=== PATIENT | female | born 1980 | race Caucasian/White ===

== ENCOUNTER 2018-05-07 05:44 | Emergency (ER) | payer BC ==
[2018-05-07 05:52] VITALS: RESP 16
--- NOTE | 2018-05-07 06:24 | ED ---
General Adult HPI - General Source: patient, RN notes reviewed Mode of arrival: ambulatory Limitations: no limitations <Leonard López - Last Filed: 05/07/18 06:22> <John Jeffery - Last Filed: 05/07/18 07:31> - General Chief complaint: Anxiety Stated complaint: Anxiety Time Seen by Provider: 05/07/18 05:54 - History of Present Illness Initial comments: 38-year-old female presenting with multiple complaints. Her chief complaint is anxiety and panic attack. She does have history of anxiety disorder and is currently on clonazepam twice daily. She has an appointment with her psychiatrist later today. Patient is concerned that she has some intracranial disease process. She's had sinus infection, pain between her eyes and worsening headache for the past 6 months. The symptoms have significantly worsened over the past one month. Her primary care physician is aware of these symptoms. Patient is unable to function secondary to her anxiety. Although her anxiety is quite severe she has truly concerned about her nasal congestion, headache, and vision changes. (Leonard López) - Related Data Home Medications Medication Instructions Recorded Confirmed FLUoxetine HCL [PROzac] 20 mg PO HS 05/07/18 05/07/18 Omeprazole 20 mg PO HS 05/07/18 05/07/18 clonazePAM [KlonoPIN] 0.25 mg PO BID 05/07/18 05/07/18 Allergies Allergy/AdvReac Type Severity Reaction Status Date / Time No Known Allergies Allergy Verified 05/07/18 07:20 Review of Systems ROS Other: All systems not noted in ROS Statement are negative. <Leonard López - Last Filed: 05/07/18 06:22> ROS Other: All systems not noted in ROS Statement are negative. <John Jeffery - Last Filed: 05/07/18 07:31> ROS Statement: Those systems with pertinent positive or pertinent negative responses have been documented in the HPI. Past Medical History Past Medical History: No Reported History History of Any Multi-Drug Resistant Organisms: None Reported Past Surgical History: Section Past Psychological History: Anxiety Smoking Status: Never smoker Past Alcohol Use History: None Reported Past Drug Use History: None Reported <Leonard López - Last Filed: 05/07/18 06:22> General Exam Limitations: no limitations General appearance: alert, in no apparent distress Head exam: Present: atraumatic, normocephalic Eye exam: Present: normal appearance, PERRL, EOMI ENT exam: Present: normal exam Neck exam: Present: normal inspection. Absent: tenderness, meningismus Respiratory exam: Present: normal lung sounds bilaterally. Absent: respiratory distress, wheezes Cardiovascular Exam: Present: regular rate, normal rhythm GI/Abdominal exam: Present: soft. Absent: distended, tenderness Extremities exam: Present: normal inspection, full ROM Back exam: Present: normal inspection, full ROM Neurological exam: Present: alert, oriented X3 Psychiatric exam: Present: anxious Skin exam: Present: warm, dry, intact. Absent: cyanosis, diaphoretic <Leonard López - Last Filed: 05/07/18 06:22> General appearance: alert, in no apparent distress Head exam: Present: atraumatic, normocephalic, normal inspection Eye exam: Present: normal appearance, PERRL, EOMI. Absent: scleral icterus, conjunctival injection, periorbital swelling ENT exam: Present: normal exam, mucous membranes moist Neck exam: Present: normal inspection. Absent: tenderness, meningismus, lymphadenopathy Respiratory exam: Present: normal lung sounds bilaterally. Absent: respiratory distress, wheezes, rales, rhonchi, stridor Cardiovascular Exam: Present: regular rate, normal rhythm, normal heart sounds. Absent: systolic murmur, diastolic murmur, rubs, gallop, clicks GI/Abdominal exam: Present: soft, normal bowel sounds. Absent: distended, tenderness, guarding, rebound, rigid Extremities exam: Present: normal inspection, full ROM, normal capillary refill. Absent: tenderness, pedal edema, joint swelling, calf tenderness Back exam: Present: normal inspection Neurological exam: Present: alert, oriented X3, CN II-XII intact Psychiatric exam: Present: normal affect, normal mood Skin exam: Present: warm, dry, intact, normal color. Absent: rash <John Jeffery - Last Filed: 05/07/18 07:31> Course <Leonard López - Last Filed: 05/07/18 06:22> <John Jeffery - Last Filed: 05/07/18 07:31> Vital Signs 05/07/18 05:49 Temperature 98 F Pulse Rate 103 H Respiratory 16 Rate Blood Pressure 119/86 O2 Sat by Pulse 99 Oximetry - Reevaluation(s) Reevaluation #1: 05/07/18 07:31 On reevaluation patient states her symptoms are improved 05/07/18 07:31 (John Jeffery) Medical Decision Making <Leonard López Gertrudis - Last Filed: 05/07/18 06:22> - Lab Data Result diagrams: 05/07/18 06:15 05/07/18 06:15 - Radiology Data Radiology results: report reviewed (CT brain negative for acute disease), image reviewed <John Jeffery - Last Filed: 05/07/18 07:31> - Medical Decision Making 38 female ER for evaluation coming in for evaluation regarding anxiety over something going on in her brain. CT is negative. Patient has no neurological findings, will be discharged home (John Jeffery) - Lab Data Lab Results 05/07/18 05/07/18 05/07/18 Range/Units 06:15 06:15 06:30 WBC 5.1 (3.8-10.6) k/uL RBC 4.52 (3.80-5.40) m/uL Hgb 14.1 (11.4-16.0) gm/dL Hct 41.1 (34.0-46.0) % MCV 90.7 (80.0-100.0) fL MCH 31.2 (25.0-35.0) pg MCHC 34.4 (31.0-37.0) g/dL RDW 12.7 (11.5-15.5) % Plt Count 199 (150-450) k/uL Neutrophils % 66 % Lymphocytes % 26 % Monocytes % 5 % Eosinophils % 1 % Basophils % 0 % Neutrophils # 3.4 (1.3-7.7) k/uL Lymphocytes # 1.3 (1.0-4.8) k/uL Monocytes # 0.3 (0-1.0) k/uL Eosinophils # 0.1 (0-0.7) k/uL Basophils # 0.0 (0-0.2) k/uL Sodium 142 (137-145) mmol/L Potassium 3.8 (3.5-5.1) mmol/L Chloride 105 (98-107) mmol/L Carbon Dioxide 23 (22-30) mmol/L Anion Gap 14 mmol/L BUN 11 (7-17) mg/dL Creatinine 0.60 (0.52-1.04) mg/dL Est GFR (CKD-EPI)AfAm >90 (>60 ml/min/1.73 sqM) Est GFR (CKD-EPI)NonAf >90 (>60 ml/min/1.73 sqM) Glucose 129 H (74-99) mg/dL Calcium 9.2 (8.4-10.2) mg/dL Total Bilirubin 1.6 H (0.2-1.3) mg/dL AST 18 (14-36) U/L ALT 18 (9-52) U/L Alkaline Phosphatase 44 (38-126) U/L Total Protein 6.5 (6.3-8.2) g/dL Albumin 4.3 (3.5-5.0) g/dL Urine Color Urine Appearance (Clear) Urine pH (5.0-8.0) Ur Specific [place] (1.001-1.035) Urine Protein (Negative) Urine Glucose (UA) (Negative) Urine Ketones (Negative) Urine Blood (Negative) Urine Nitrite (Negative) Urine Bilirubin (Negative) Urine Urobilinogen (<2.0) mg/dL Ur Leukocyte Esterase (Negative) Urine HCG, Qual Not Detected (Not Detectd) 05/07/18 Range/Units 06:30 WBC (3.8-10.6) k/uL RBC (3.80-5.40) m/uL Hgb (11.4-16.0) gm/dL Hct (34.0-46.0) % MCV (80.0-100.0) fL MCH (25.0-35.0) pg MCHC (31.0-37.0) g/dL RDW (11.5-15.5) % Plt Count (150-450) k/uL Neutrophils % % Lymphocytes % % Monocytes % % Eosinophils % % Basophils % % Neutrophils # (1.3-7.7) k/uL Lymphocytes # (1.0-4.8) k/uL Monocytes # (0-1.0) k/uL Eosinophils # (0-0.7) k/uL Basophils # (0-0.2) k/uL Sodium (137-145) mmol/L Potassium (3.5-5.1) mmol/L Chloride (98-107) mmol/L Carbon Dioxide (22-30) mmol/L Anion Gap mmol/L BUN (7-17) mg/dL Creatinine (0.52-1.04) mg/dL Est GFR (CKD-EPI)AfAm (>60 ml/min/1.73 sqM) Est GFR (CKD-EPI)NonAf (>60 ml/min/1.73 sqM) Glucose (74-99) mg/dL Calcium (8.4-10.2) mg/dL Total Bilirubin (0.2-1.3) mg/dL AST (14-36) U/L ALT (9-52) U/L Alkaline Phosphatase (38-126) U/L Total Protein (6.3-8.2) g/dL Albumin (3.5-5.0) g/dL Urine Color Yellow Urine Appearance Clear (Clear) Urine pH 6.0 (5.0-8.0) Ur Specific [place] 1.009 (1.001-1.035) Urine Protein Negative (Negative) Urine Glucose (UA) Negative (Negative) Urine Ketones Negative (Negative) Urine Blood Negative (Negative) Urine Nitrite Negative (Negative) Urine Bilirubin Negative (Negative) Urine Urobilinogen <2.0 (<2.0) mg/dL Ur Leukocyte Esterase Negative (Negative) Urine HCG, Qual (Not Detectd) Disposition <Leonard López N - Last Filed: 05/07/18 06:22> Is patient prescribed a controlled substance at d/c from ED?: No <John Jeffery - Last Filed: 05/07/18 07:31> Clinical Impression: Acute anxiety Disposition: HOME SELF-CARE Instructions: Generalized Anxiety Disorder (ED) Referrals: Gil Hernandez DO [Primary Care Provider] - 1-2 days
[2018-05-07] MEDS ORDERED: ONDANSETRON 4 MG/2 ML VIAL IVP STA (06:32)
[2018-05-07 06:33] LABS: Basophils % (A) 0 %; Eosinophils # (A) 0.1 k/uL (0-0.7); Eosinophils % (A) 1 %; HCT 41.1 % (34.0-46.0); HGB 14.1 gm/dL (11.4-16.0); Lymphocytes # (A) 1.3 k/uL (1.0-4.8); Lymphocytes % (A) 26 %; MCH 31.2 pg (25.0-35.0); MCHC 34.4 g/dL (31.0-37.0); MCV 90.7 fL (80.0-100.0); Mean Platelet Volume 7.8; Monocytes # (A) 0.3 k/uL (0-1.0); Monocytes % (A) 5 %; Neutrophils # (A) 3.4 k/uL (1.3-7.7); Neutrophils % (A) 66 %; Platelet Count 199 k/uL (150-450); RBC 4.52 m/uL (3.80-5.40); RDW 12.7 % (11.5-15.5); WBC 5.1 k/uL (3.8-10.6)
[2018-05-07 06:43] LABS: ALT 18 U/L (9-52); AST 18 U/L (14-36); Albumin 4.3 g/dL (3.5-5.0); Alkaline Phosphatase 44 U/L (38-126); Anion Gap 14 mmol/L; Blood Urea Nitrogen 11 mg/dL (7-17); Calcium 9.2 mg/dL (8.4-10.2); Carbon Dioxide 23 mmol/L (22-30); Chloride 105 mmol/L (98-107); Glucose 129 mg/dL (74-99); Potassium 3.8 mmol/L (3.5-5.1); Sodium 142 mmol/L (137-145); Total Bilirubin 1.6 mg/dL (0.2-1.3); Total Protein 6.5 g/dL (6.3-8.2)
[2018-05-07 06:48] LABS: Appearance,Urine Clear (Clear); Bilirubin,Urine Negative (Negative); Blood,Urine Negative (Negative); Color,Urine Yellow; Glucose,Urine (UA) Negative (Negative); Ketones,Urine Negative (Negative); Leukocyte Esterase,Urine Negative (Negative); Nitrite,Urine Negative (Negative); Protein,Urine Negative (Negative); Specific Gravity,Urine 1.009 (1.001-1.035); Urobilinogen,Urine <2.0 mg/dL (<2.0)
--- NOTE | 2018-05-07 07:20 | CT ---
EXAMINATION TYPE: CT brain wo con DATE OF EXAM: 05/07/2018 COMPARISON: NONE HISTORY: Blurred vision, dizziness, ear pressure and pain CT DLP: 945.[address] of the brain was performed. The ventricles, basal cisterns and sulci overlying the cerebral convexities demonstrate a normal appe arance. There is no evidence for intracranial hemorrhage or sulcal effacement. No mass effects are seen. Osseous calvarium is intact. Left maxillary mucous retention cyst or polyp. If symptoms persist consider MRI as clinically warranted. IMPRESSION: 1. No acute intracranial process is seen at this time.
[2018-05-07 08:42] VITALS: BP 134/84; PULSE 94; TEMP 97.3
== END 2018-05-07 08:40 | disposition home or self-care (01) ==
LOC: EC 05:44
DX: F41.0 Panic disorder [episodic paroxysmal anxiety] (principal); Z79.899 Other long term (current) drug therapy
CPT/HCPCS: 36415; 80053; 85025; 81003; 81025; 70450; 99284; 96374; J2405

== ENCOUNTER → 2019-08-21 | Outpatient (CLI) | payer OTHER ==
[2019-08-21 11:58] LABS: Basophils % (A) 1 %; Eosinophils # (A) 0.1 k/uL (0-0.7); Eosinophils % (A) 1 %; HCT 41.2 % (34.0-46.0); HGB 13.2 gm/dL (11.4-16.0); Lymphocytes % (A) 30 %; MCH 30.9 pg (25.0-35.0); MCV 96.7 fL (80.0-100.0); Mean Platelet Volume 8.1; Monocytes # (A) 0.4 k/uL (0-1.0); Monocytes % (A) 6 %; Neutrophils # (A) 3.9 k/uL (1.3-7.7); Neutrophils % (A) 60 %; Platelet Count 181 k/uL (150-450); RBC 4.26 m/uL (3.80-5.40); RDW 12.6 % (11.5-15.5); WBC 6.5 k/uL (3.8-10.6)
== END | disposition home or self-care (01) ==
LOC: LABPAT 11:10
PROVIDERS: ATTEND Obstetrics & Gynecology
DX: Z01.812 Encounter for preprocedural laboratory examination (principal)
CPT/HCPCS: 36415; 85025

== ENCOUNTER 2019-08-27 06:33 | Day surgery (SDC) | payer BC, OTHER ==
[2019-08-25 15:24] VITALS: BMI 25.2
--- NOTE | 2019-08-26 19:49 | P.HPOB ---
History of Present Illness H&P Date: 08/26/19 Chief Complaint: Intermenstrual bleeding This is a 39-year-old female 2 para 2 who presents for dilation and curettage with hysteroscopy secondary to intermenstrual bleeding. She states she is bleeding in between her periods for at least 4 days and has to wear regul ar pad during this time. It either occurs midcycle her right at the end of her cycle every month. Her menses are occurring monthly every 29 days. The intermenstrual bleeding begins either at the endocervix. Or around day 14 and lasts up to 5-6 days. It is fairly light with spotting but is enough to wear a pad. In addition she gets more headaches every time she does have the bleeding. 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 Endometrium of the right horn measured 7 mm in the left horn measured 10 mm. Right ovary appeared normal and the left ovary was not visualized. In addition her last Pap smear of the right cervix showed normal Pap positive high-risk HPV, and negative types 16 and 18. This is the second year in a row this has shown the same finding. Her left cervix was normal both years. Obstetrical history: . History of 2 deliveries. Gynecologic history: No history of sexual transmitted diseases. Social history: She is . She works as a teacher. Review of Systems Constitutional: Reports fatigue Eyes: denies blurred vision, denies pain Ears, nose, mouth and throat: Denies headache, Denies sore throat Cardiovascular: Denies chest pain, Denies shortness of breath Respiratory: Denies cough Gastrointestinal: Denies abdominal pain, Denies diarrhea, Denies nausea, Denies vomiting Genitourinary: Reports abnormal vaginal bleeding, Reports dyspareunia, Reports dysuria Menstruation: Reports menses variable, Reports period spotting Musculoskeletal: Denies myalgias Integumentary: Denies pruritus, Denies rash Neurological: Denies numbness, Denies weakness Psychiatric: Reports anxiety, Reports memory loss Past Medical History Past Medical History: GI Bleed Additional Past Medical History / Comment(s): Right kidney agenesis; uterine didelphys with complete vaginal septum; history of GI bleed in 2013 History of Any Multi-Drug Resistant Organisms: None Reported Past Surgical History: Section (Times 2) Additional Past Surgical History / Comment(s): Left oophorectomy at age 4 months old Past Anesthesia/Blood Transfusion Reactions: No Reported Reaction Additional Past Anesthesia/Blood Transfusion Reaction / Comment(s): hx of blood transfusions no reactions Past Psychological History: Anxiety Smoking Status: Never smoker Past Alcohol Use History: Rare Past Drug Use History: None Reported - Past Family History Mother Family Medical History: Cancer Additional Family Medical History / Comment(s): colon Medications and Allergies Home Medications Medication Instructions Recorded Confirmed Type FLUoxetine HCL 10 mg PO QAM 08/25/19 08/25/19 History Multivitamins, Thera [Multivitamin 1 tab PO DAILY 08/25/19 08/25/19 History (formulary)] QUEtiapine [SEROquel] 25 mg PO HS 08/25/19 08/25/19 History Vortioxetine Hydrobromide 5 mg PO QAM 08/25/19 08/25/19 History [Trintellix] Allergies Allergy/AdvReac Type Severity Reaction Status Date / Time No Known Allergies Allergy Verified 08/25/19 15:19 Exam Osteopathic Statement: *. No significant issues noted on an osteopathic structural exam other than those noted in the History and Physical/Consult. HEENT: Within normal limits Heart: Regular rate and rhythm Lungs: Clear to auscultation bilaterally Abdomen: Soft, nontender Pelvic exam: She does have a vaginal septum. The left cervix is easily visible and nulliparous appearing. The right cervix is barely visible using a narrow speculum and occurs towards the left side when opening the narrow speculum. Access to the right cervix is noted through very small hole on the right upper vagina near the urethra. Uterus is nodular consistent with uterine didelphys and mid position. There is tenderness noted in the left adnexa and no adnexal masses are noted bilaterally. Extremities: Negative Homans Assessment and Plan (1) Intermenstrual bleeding Status: Acute Code(s): N92.3 - OVULATION BLEEDING SNOMED Code(s): 908309776 Plan: Proceed with dilation and curettage with hysteroscopy. We will attempt a fractional dilation and curettage on the right cervix due to positive high risk HPV noted. I have discussed the risks, benefits, and alternative therapies for the above- mentioned procedure and for both sedation/anesthesia as well as necessary blood products administration, if indicated, as they pertain to this patient. The patient has indicated her understanding and acceptance of the risks and procedures discussed.
[~2019-08-27 06:33] MED LIST: DEXAMETHASONE SOD PHOSPHATE 10 MG/ML 1 ML VIAL IV ONE; HYDROmorphone 0.5 MG/0.5 ML SYRINGE IVP PRN; LACTATED RINGERS 1,000 ML IV SCH; LIDOCAINE 1% 20 ML VIAL (10MG/ML) FOR IV START INTRADERMA PRN; ONDANSETRON 4 MG/2 ML VIAL IVP ONE; ONDANSETRON 4 MG/2 ML VIAL IVP PRN; Pre Op ABX Message 1 EACH MISC MISCELLANE ONE
[2019-08-27] MEDS ORDERED: SCOPOLAMINE 1.5MG/72HR PATCH TRANSDERM ONE (06:54)
[2019-08-27] MEDS ORDERED: MIDAZOLAM 2 MG/2 ML VIAL ONE (07:21)
[2019-08-27] MEDS ORDERED: diphenhydrAMINE 50 MG/ML 1 ML VIAL ONE (07:21)
[2019-08-27] MEDS ORDERED: fentaNYL (PF) 50 MCG/ML 2 ML AMP ONE (07:21)
[2019-08-27] MEDS ORDERED: PROPOFOL 10 MG/ML 20 ML VIAL IV ONE (07:21)
[2019-08-27] MEDS ORDERED: LIDOCAINE 1% INJ 10MG/ML (20 ML MDV) ONE (07:21)
--- NOTE | 2019-08-27 08:17 | P.OP ---
Date of Procedure: 08/27/19 Preoperative Diagnosis: 1. Intermenstrual bleeding. 2. Uterine didelphys with vaginal septum. 3. Positive high-risk HPV on the right cervix. Postoperative Diagnosis: Same Procedure(s) Performed: Dilation and curettage with hysteroscopy Anesthesia: other (Mask general) Surgeon: Rowan Cosme Estimated Blood Loss (ml): 20 Pathology: other (#1-left horn endometrial curettings; #2-right horn endocervical curettings; #3-right horn endometrial curettings) Condition: stable Disposition: same day Indications for Procedure: This is a 39-year-old female 2 para 2 who presents for dilation and curettage with hysteroscopy secondary to intermenstrual bleeding. She states she is bleeding in between her periods for at least 4 days and has to wear regular pad during this time. It either occurs midcycle her right at the end of her cycle every month. Her menses are occurring monthly every 29 days. The intermenstrual bleeding begins either at the endocervix. Or around day 14 and lasts up to 5-6 days. It is fairly light with spotting but is enough to wear a pad. In addition she gets more headaches every time she does have the bleeding. 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 Endometrium of the right horn measured 7 mm in the left horn measured 10 mm. Right ovary appeared normal and the left ovary was not visualized. In addition her last Pap smear of the right cervix showed normal Pap positive high-risk HPV, and negative types 16 and 18. This is the second year in a row this has shown the same finding. Her left cervix was normal both years. Operative Findings: Complete vaginal septum is noted. 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 The left horn is sounded to 8/2 cm and the right horn is sounded to 10 cm. Minimal endometrial curettings are noted from the left side and moderate endometrial curettings are noted from the right side. Right vagina is very narrowed and accessible from a small hole up near the urethra. Upon hysteroscopy, both tubal ostia are visualized. Some buildup of tissue is noted in the right horn. Description of Procedure: The patient is taken to the operating room where she is placed in the dorsal lithotomy position. She is prepped and draped in the normal sterile fashion. Bladder is drained with a catheter. Examination is performed under anesthesia. The left horn was palpated and appeared normal size. No adnexal masses are palpated. The right horn is palpated through a narrow opening on the right side of the vagina and appears slightly enlarged. Next a weighted speculum was placed in the left side of the vagina and the left cervical os was visualized. The anterior lip was grasped with a single-tooth tenaculum. Next the cervix is gently dilated with a Pickett dilator and then uterus is sounded to 8-1/2 cm. Cervix is gently dilated further until a hysteroscope could be passed. Hysteroscopy is performed using normal saline. The above noted findings are made and pictures are taken. Hysteroscope was withdrawn and then the cervix is gently dilated further. A small curet was then introduced and sharp curettage was performed until a gritty texture was noted. Minimal tissue was obtained. The single-tooth tenaculum is removed and pressure was applied for a minute with a ring forcep for hemostasis. Once good hemostasis was noted the speculum was removed. Next a narrow sidewall retractor was used to retract the right side of the vagina and visualized the right cervix. The right cervix was grasped with a Allis clamp. Next the opening to the os was visualized and gently opened with a Pickett dilator. Once this was opened adequately, a uterine sound was used to sound the uterus to 10 cm. Next a Kevorkian curette was used to gently curette the endocervix on the right horn. This tissue was sent as endocervical curettings. The cervix is gently dilated further until a hysteroscope could be passed. Hysteroscopy is performed using normal saline. Tubal ostia is visualized and some buildup of tissue is noted. Pictures are taken. Hysteroscope was removed. Next the cervix is gently dilated further and a small curet was then used to curettage the right horn. A moderate amount of tissue was obtained. This was sent to pathology labeled right horn endometrial curettings. Next the Allis clamp was removed and minimal bleeding was noted. All instruments are removed from the vagina. All sponge counts are correct. The patient is then taken to recovery room in stable condition.
[2019-08-27 08:26] VITALS: TEMP 97
[2019-08-27] MEDS ORDERED: ACETAMINOPHEN IV (For NPO) 1,000 MG/100 ML VIAL IVPB ONE (08:56)
[2019-08-27 09:28] VITALS: BP 109/75; PULSE 69; RESP 16
== END 2019-08-27 10:15 | disposition home or self-care (01) ==
LOC: OR 06:33
PROVIDERS: ATTEND Obstetrics & Gynecology
DX: R87.612 Low grade squamous intraepithelial lesion on cytologic smear of cervix (LGSIL) (principal); N92.3 Ovulation bleeding; Q51.21 Complete doubling of uterus; G43.829 Menstrual migraine, not intractable, without status migrainosus; Q60.0 Renal agenesis, unilateral; Z87.19 Personal history of other diseases of the digestive system; K21.9 Gastro-esophageal reflux disease without esophagitis; F41.9 Anxiety disorder, unspecified; Z80.0 Family history of malignant neoplasm of digestive organs; Z90.721 Acquired absence of ovaries, unilateral; Z79.899 Other long term (current) drug therapy
CPT/HCPCS: 81025; 88305; 58563; J2250; J1200; J1100; J2405; J2001; J3010; J0131; J2704